=== PATIENT | male | born 1950 | race Caucasian/White ===

== ENCOUNTER 2022-08-15 08:39 | Outpatient (CLI) | payer OTHER, SELFPAY ==
[2022-08-15 10:06] LABS: Free T4 Free Thyroxine 1.09 ng/dL (0.82-1.77); Thyroid Stimulating Hormone 2.84 uIU/mL (0.27-4.20)
== END 2022-08-15 08:40 | disposition home or self-care (01) ==
PROVIDERS: Visit Provider Chiropractor
DX: E03.9 Hypothyroidism, unspecified (principal)
CPT/HCPCS: 84439; 84443